=== PATIENT | female | born 1970 | race Caucasian/White ===

== ENCOUNTER 2017-01-04 09:47 | Outpatient (CLI) | payer BC, OTHER ==
--- NOTE | 2017-01-04 10:27 | CPEKG ---
Heart Rate: 78 RR Interval: 769 P-R Interval: 148 QRSD Interval: 94 QT Interval: 388 QTC Interval: 442 P Prospect: 34 QRS Prospect: 50 T Wave Prospect: 33 EKG Severity - NORMAL ECG - EKG Impression: SINUS RHYTHM Electronically Signed By: Anand Craft 04-Jan-2017 16:44:44
[2017-01-04] MEDS ORDERED: ADENOSINE 6 MG/2 ML VIAL IVP ONE (11:00)
--- NOTE | 2017-01-04 13:41 | CPR ---
[f rep st] NONINVASIVE CARDIAC PROCEDURE REPORT PROCEDURE PERFORMED: Adenosine bolus. 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 PROCEDURE: Appropriate monitoring was established. Consents were obtained. A 6, 12, and then 18 m g bolus of adenosine was administered. With the 18 mg of adenosine bolus, there was 2-1 conduction across the AV node. There were 3 nonconducted P-waves seen. This rules out most accessory pathway with the exception Mahaim accessory pathway. The patient unde rstands this. The patient was provided with a copy of the EKG that shows the above findings. She does not need any followup with electrophysiology. /[id number]/MODL
== END 2017-01-04 11:10 | disposition home or self-care (01) ==
LOC: FCP 09:47 → FCATH 11:10
PROVIDERS: ATTEND Internal Medicine Cardiovascular Disease
DX: R94.31 Abnormal electrocardiogram [ECG] [EKG] (principal)
CPT/HCPCS: J0153

== ENCOUNTER → 2017-08-17 | Outpatient (CLI) | payer OTHER | LOC: CIMAGING 12:14 | CPT/HCPCS: G0202 ==